=== PATIENT | female | born 1995 | race Two or more races ===

== ENCOUNTER 2020-08-18 14:23 | Emergency (ER) | payer MEDICAID ==
[~2020-08-18] VITALS: Ht 172.7 cm; Wt 82.0 kg
[2020-08-18] MEDS ORDERED: IBUPROFEN 600MG TABLET PO ONE (18:30)
[2020-08-18] MEDS ORDERED: PENI500T MT (18:39)
[2020-08-18] MEDS ORDERED: IBUP-2029 MT (18:39)
[2020-08-18] MEDS ORDERED: DEXAMETHASONE 10 MG/ML VIAL IM ONE (18:45)
[2020-08-18 19:15] VITALS: BP 133/87
== END 2020-08-18 19:14 | disposition home or self-care (01) ==
LOC: ER 14:23
DX: J03.00 Acute streptococcal tonsillitis, unspecified (principal); R03.0 Elevated blood-pressure reading, without diagnosis of hypertension; Z86.16 Personal history of COVID-19
CPT/HCPCS: 87430; 93005; 96372; 99284; J1100; 87070

== ENCOUNTER 2020-11-05 11:09 | Emergency (ER) | payer MEDICAID, OTHER ==
[~2020-11-05] VITALS: Ht 172.7 cm; Wt 89.0 kg
[~2020-11-05 11:09] MED LIST: IBUP-2029 MT; PENI500T MT
[2020-11-05] MEDS ORDERED: KETOROLAC 60MG/2ML VIAL IM STA (12:08)
[2020-11-05 12:42] VITALS: BP 131/92
[2020-11-05] MEDS ORDERED: IBUP-2029 MT (14:04)
[2020-11-05] MEDS ORDERED: IBUPROFEN 600MG TABLET PO ONE (14:30)
== END 2020-11-05 14:24 | disposition home or self-care (01) ==
LOC: ER 11:09
DX: R07.89 Other chest pain (principal); R07.81 Pleurodynia; R11.2 Nausea with vomiting, unspecified; R03.0 Elevated blood-pressure reading, without diagnosis of hypertension
CPT/HCPCS: 71046; 93005; 96372; 99283; J1885